=== PATIENT | female | born 1950 | race Native Hawaiian/Other Pacific Islander ===

== ENCOUNTER 2020-11-22 10:52 | Emergency (ER) | payer MEDICARE, MEDICAID ==
[~2020-11-22] VITALS: Ht 160 cm; Wt 107.2 kg
[2020-11-22] MEDS ORDERED: FEXO180T84 PO (11:16)
[2020-11-22] MEDS ORDERED: RT-ALBUINH IH (11:16)
[2020-11-22] MEDS ORDERED: PRD50T PO (11:16)
[2020-11-22] MEDS ORDERED: GUAI1TBM19 PO (11:16)
--- NOTE | 2020-11-22 11:16 | ED Cough/URI ---
General Chief Complaint: Respiratory Problems Stated Complaint: SOB; LOOSE STOOL; LUNG PAIN History of Present Illness Date Seen by Provider: Nov 22, 2020 Time Seen by Provider: 11:11 Initial Comments 70-year-old female presents with 4 months of a persistent cough that is occasionally productive. Denies fever chills, shortness of air or wheezing. Does have occasional nasal congestion, sore throat and ear pressure. Saw her PCP couple weeks ago and was given a prescription of Augmentin for 10 days, canelo price says she had some mild improvement however the symptoms have persisted. She is also using an albuterol inhaler intermittently with some relief of the cough, however it is worse at night and not getting better. Allergies and Home Medications Allergies Coded Allergies: lorazepam (Verified Allergy, Unknown, 11/22/20) meperidine (Verified Allergy, Unknown, 11/22/20) Patient Home Medication List Home Medication List Reviewed: Yes Albuterol Sulfate (Proair Hfa) 1 Puff Puff, 2 PUFF IH Q4H Prescribed by: SHANNON ASH on 11/22/20 1116 Doxycycline Hyclate (Doxycycline Hyclate) 100 Mg Tablet, 100 MG PO BID Prescribed by: SHANNON ASH on 11/22/20 1210 Fexofenadine HCl (Michelle Allergy) 180 Mg Tablet, 180 MG PO DAILY Prescribed by: SHANNON ASH on 11/22/20 1116 Guaifenesin/Dextromethorphan (Mucinex Dm ER 1,200-60 mg Tab) 1 Each Tbmp.12hr, 1 EACH PO BID Prescribed by: SHANNON ASH on 11/22/20 1116 Prednisone (Prednisone) 50 Mg Tab, 50 MG PO DAILY Prescribed by: SHANNON ASH on 11/22/20 1116 Review of Systems Review of Systems Constitutional: No fever, No malaise, No weakness EENTM: see HPI, ear pain, nose congestion, throat pain Respiratory: cough; No short of breath, No wheezing Cardiovascular: No chest pain, No edema, No palpitations, No syncope Gastrointestinal: No abdominal pain, No loss of appetite, No nausea, No vomiting Skin: No change in color, No rash Psychiatric/Neurological: Denies Headache, Denies Paresthesia Past Myomuok-Hjlrzc-Fdrupe Hx Patient Social History Tobacco Use?: Yes Tobacco type used: Cigarettes Smoking Status: Former Smoker Use of E-Cig and/or Vaping dev: No Substance use?: No Alcohol Use?: No Pt feels they are or have been: No Immunizations Up To Date First/Initial COVID19 Vaccinat: JUNE 2020 Second COVID19 Vaccination Daniel: JULY 2020 COVID19 Vaccine 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 oz. kg; BMI Method: General Appearance: WD/WN, no apparent distress HEENT: PERRL/EOMI, normal ENT inspection, TMs normal, pharynx normal Neck: non-tender, supple Respiratory: chest non-tender, lungs clear, normal breath sounds, no respiratory distress, no accessory muscle use, respiratory distress Cardiovascular: normal peripheral pulses, regular rate, rhythm, no edema, no gallop, no JVD, no murmur Gastrointestinal: non tender, soft Progress/Results/Core Measures Suspected Sepsis SIRS Temperature: Pulse: Respiratory Rate: Blood Pressure / Mean: Results/Orders My Orders Orders - SHANNON ASH DO Chest 1 View Ap/Pa Only (11/22/20 11:10) Vital Signs/I&O 11/22/20 11/22/20 10:57 12:20 Temp 36.1 36.1 Pulse 83 83 Resp 18 18 B/P (MAP) 150/94 (112) 155/89 Pulse Ox 98 97 O2 Delivery Room Air Room Air Capillary Refill : Diagnostic Imaging Diagonstic Imaging: Xray Comments FINDINGS: Heart size is mildly enlarged. Pulmonary vasculature is normal. There are mild interstitial opacities in the lung bases. No pleural effusion or pneumothorax. Degenerative changes of the thoracic spine. Osseous structures are otherwise intact. IMPRESSION: 1. Mild interstitial opacities in the lung bases which could represent atelectasis, pulmonary edema, or atypical infection in the appropriate clinical setting. Dictated by: Dictated on workstation # [id number] Dict: 11/22/20 1121 Trans: 11/22/20 1138 [id number] Interpreted by: MINERVA NORMAN DO Electronically signed by: MINERVA NORMAN DO 11/22/20 1138 Departure Impression Primary Impression: Bronchitis Disposition: 01 HOME, SELF-CARE Condition: Stable Departure-Patient Inst. Decision time for Depature: 11:14 Referrals: MITRA CLOUD MD (PCP/Family) Primary Care Physician Patient Instructions: Bronchitis, Adult ED Add. Discharge Instructions: Call Dr Cloud to arrange for a follow up appointment in 2 weeks, sooner if worse All discharge instructions reviewed with patient and/or family. Voiced understanding. Scripts Doxycycline Hyclate (Doxycycline Hyclate) 100 Mg Tablet 100 MG PO BID, #20 TAB 0 Refills Prov: JULISSASTSHANNON ALCALA DO 11/22/20 Fexofenadine HCl (Michelle Allergy) 180 Mg Tablet 180 MG PO DAILY, #14 TAB Prov: JULISSASTSHANNON ALCALA DO 11/22/20 Guaifenesin/Dextromethorphan (Mucinex Dm ER 1,200-60 mg Tab) 1 Each Tbmp.12hr 1 EACH PO BID, #20 EA Prov: JULISSASTSHANNON ALCALA DO 11/22/20 Albuterol Sulfate (PROAIR HFA) 1 Puff Puff 2 PUFF IH Q4H for Cough, #1 PUFF 1 Refill 1 PUFF = 90 MCG Prov: SHANNON ASH DO 11/22/20 Prednisone (Prednisone) 50 Mg Tab 50 MG PO DAILY, #7 TAB Prov: SHANNON ASH DO 11/22/20 SHANNON ASH DO Nov 22, 2020 11:16
--- NOTE | 2020-11-22 11:24 | Diagnostic Imaging Report ---
EXAMINATION: Chest, one view. HISTORY: Cough, four months. COMPARISON: None available. FINDINGS: Heart size is mildly enlarged. Pulmonary vasculature is normal. There are mild interstitial opacities in the lung bases. No pleural effusion or pneumothorax. Degenerative changes of the thoracic spine. Osseous structures are otherwise intact. IMPRESSION: 1. Mild interstitial opacities in the lung bases which could represent atelectasis, pulmonary edema, or atypical infection in the appropriate clinical setting. Dictated by: Dictated on workstation # [id number]
[2020-11-22] MEDS ORDERED: DOXY100T2 PO (12:10)
[2020-11-22 12:20] VITALS: BP 155/89
== END 2020-11-22 12:15 | disposition home or self-care (01) ==
LOC: ER FS 10:54
DX: J40 Bronchitis, not specified as acute or chronic (principal); Z87.891 Personal history of nicotine dependence
CPT/HCPCS: 71045

== ENCOUNTER → 2020-12-06 | Outpatient (CLI) | payer MEDICARE, MEDICAID ==
[~2020-12-06] MED LIST: DOXY100T2 PO; FEXO180T84 PO; GUAI1TBM19 PO; PRD50T PO; RT-ALBUINH IH
== END ==
LOC: ORTHO 10:11
PROVIDERS: ATTEND Orthopaedic Surgery
DX: M17.11 Unilateral primary osteoarthritis, right knee (principal)
CPT/HCPCS: 99203

== ENCOUNTER → 2021-05-23 | Outpatient (CLI) | payer MEDICARE, MEDICAID | LOC: ORTHO 10:18 | PROVIDERS: ATTEND Orthopaedic Surgery | DX: M17.11 Unilateral primary osteoarthritis, right knee (principal) | CPT/HCPCS: 20610 ==

== ENCOUNTER → 2022-01-16 | Outpatient (CLI) | payer MEDICARE, MEDICAID ==
[~2022-01-16] MED LIST changes: +ALBU8.5H6 IH; -RT-ALBUINH IH
--- NOTE | 2022-01-16 17:01 | Diagnostic Imaging Report ---
CLINICAL INDICATIONS: Patient with headaches and vertigo. Comparison: None Exam: Real-time ultrasound carotid Doppler duplex imaging is performed bilaterally with multiple real-time grayscale images obtained in various projections. Additional spectral analysis and color Doppler duple images were also obtained. Peak systolic velocity, ICA/CCA peak systolic ratio, spectral analysis, and vascular morphology are studied. Findings: ARTERY VELOCITY Right Left CCA 0.90 m/s 0.86 m/s ICA 1.02 m/s 1.15 m/s ECA 1.25 m/s 0.93 m/s ICA/CCA 1.1 1.3 VERT.ART Antegrade Antegrade There is minimal bilateral carotid artery atherosclerotic disease. Impression: There is no grayscale or Doppler evidence of significant vascular stenosis. Dictated by: Dictated on workstation # [id number]
== END ==
LOC: RAD 13:26
PROVIDERS: ATTEND Family Medicine
DX: G45.9 Transient cerebral ischemic attack, unspecified (principal)
CPT/HCPCS: 93880

== ENCOUNTER → 2022-10-22 | Outpatient (CLI) | payer MEDICAID, MEDICARE ==
[~2022-10-22] MED LIST changes: +RT-ALBUTEROL SULF 2.5 MG/3 ML PRE-MIX VIAL INH ONE
== END ==
LOC: RT 13:12
PROVIDERS: ATTEND Family Medicine
DX: J44.9 Chronic obstructive pulmonary disease, unspecified (principal)
CPT/HCPCS: 94060; 94726; 94729